=== PATIENT | male | born 1960 | race Caucasian/White ===

== ENCOUNTER → 2017-11-15 | Outpatient (CLI) | payer OTHER ==
[~2017-11-15] MED LIST: MECL25TA9 PO; MELO-207 PO; NO ROUTINE MEDS; PER PO; PROM-110 PO
--- NOTE | 2017-11-15 16:24 | RADIOLOGY IMAGING REPORT ---
FACILITY: [facility] - [place] PATIENT NAME: Po Ignacio : 1960 MR: [id number] V: [id number] EXAM DATE: ORDERING PHYSICIAN: ASMITA CARRILLO TECHNOLOGIST: Location: [facility] - [place] Patient: Po Ignacio : 1960 Visit/Account:[id number] Date of Sevice: 11/15/2017 BRAIN W/O CONTRAST Comparisons: Comparison made to report dated August 02, 2015 Additional pertinent history: Memory impairment TECHNIQUE: Multiplanar, multisequence brain MRI was performed without gadolinium contrast. FINDINGS: Sagittal midline structures and craniocervical junction: Negative. Midline shift: None. Ventricles: Negative. Brain parenchyma: Diffusion weighted imaging: Negative. Gradient sequence: Negative. T2 weighted FLAIR images: Scattered foci of abnormal increased T2 signal within the periventricular and subcortical white matter, nonspecific but likely representing small vessel ischemic change on a chronic basis. Extra-axial spaces: Mild cerebral atrophy. Dural venous sinuses and major arterial flow voids: Negative. Mastoid air cells and paranasal sinuses: Moderate lobular mucosal thickening involving the left maxil marcial sinus. Otherwise negative Surrounding soft tissues and orbits: Negative. Impression: 1. Age related changes as described above. 2. Underlying paranasal sinus disease. 3. No evidence of acute intracranial pathology. Report Dictated By: Edgar Ybarra MD at 11/15/2017 4:17 PM Report E-Signed By: Edgar Ybarra MD at 11/15/2017 4:21 PM WSN:[id number]
== END ==
LOC: MRI 11:05
PROVIDERS: ATTEND Psychiatry & Neurology Neurology
DX: R41.3 Other amnesia (principal); R41.840 Attention and concentration deficit
CPT/HCPCS: 70551

== ENCOUNTER → 2017-12-24 | Outpatient (CLI) | payer OTHER ==
[2017-12-24 16:38] LABS: INR 0.99
== END ==
LOC: LAB 08:59
PROVIDERS: ATTEND Psychiatry & Neurology Neurology
DX: R41.3 Other amnesia (principal); F03.90 Unspecified dementia, unspecified severity, without behavioral disturbance, psychotic disturbance, mood disturbance, and anxiety
CPT/HCPCS: 36415; 85610; 85730

== ENCOUNTER 2018-03-19 21:49 | Emergency (ER) | payer OTHER ==
[2018-03-19 22:01] VITALS: BP 105/74
[2018-03-19] MEDS ORDERED: LIDOCAINE 1% MDV 200 MG/20 ML INJ ONE (22:15)
[2018-03-19] MEDS ORDERED: cefTRIAXone 1 GM VIAL IM ONE (22:15)
[2018-03-19] MEDS ORDERED: ACET/HYDROC 5/325MG TH ER ONLY 2 TAB/BOTTLE PO ONE (22:15)
[2018-03-19] MEDS ORDERED: AMOX/CLAV 875 MG TAB PO ONE (22:15)
[2018-03-19] MEDS ORDERED: LOR5/325 PO (22:17)
[2018-03-19] MEDS ORDERED: AMOX-559 PO (22:17)
--- NOTE | 2018-03-19 22:18 | ER Report ---
History and Physical Time Seen By MD: 22:02 Hx. of Stated Complaint: PT FELL ONTO THE CORNER OF A TOOL BOX A WEEK AGO. PT STATES HE HIT TAILBONE AND HAS A BRUISE. AFTER TRIAGE, PT HAS A DEEP WOUND. NO BRUISING. HPI/ROS CHIEF COMPLAINT: tailbone pain HISTORY OF PRESENT ILLNESS: This is a 57 year old male. He has had tailbone pain for a week now. He fell and hit the corner of a toolbox directly over his tailbone. He had swelling and pain in the skin over the area. The last few days has had some draining as well. Pain has been worsening. Pain with pressure or sitting or movement. Allergies: Coded Allergies: No Known Drug Allergies (Verified , 08/02/15) Home Meds Active Scripts Hydrocodone Bit/Acetaminophen (HYDROCODON-ACETAMINOPHEN 5-325) 1 Each Tablet, 1 EACH PO Q4H PRN for PAIN, #12 TAB 0 Refills Prov:GARY CINTRON MD 03/19/18 Amoxicillin/Pot Clav 875-125 Mg Tab (AUGMENTIN 875-125 TABLET) 1 Each Tablet, 1 TAB PO Q12H, #20 TAB 0 Refills Prov:GARY CINTRON MD 03/19/18 Reported Medications Meloxicam (MELOXICAM) 15 Mg Tablet, 15 MG PO QDAY 03/18/17 Reviewed Nurses Notes: Yes Hx Smoking: No Smoking Status: Never Smoker Exposure to Second Hand Smoke?: No Hx Substance Use Disorder: No Hx Alcohol Use: Yes (social) Constitutional Vital Sign - Last 24 Hours 03/19/18 03/19/18 22:01 23:15 Temp 98.3 Pulse 78 84 Resp 20 18 B/P (MAP) 105/74 Pulse Ox 95 97 O2 Delivery Room Air Physical Exam General: Alert, mild distress due to pain. Skin: He has an abscess at the gluteal fold over the coccyx area that has opened and is draining. Hot and indurated. Purulent drainage. Musculoskeletal: Cannot determine if there is underlying bony pain because of diffuse pain in the area. Cardiovascular: Normal skin perfusion surrounding the area. Medical Decision Making EKG/Imaging Imaging INDICATION: coccyx injury, abscess EXAM DATE: 03/19/2018 10:12 PM COMPARISON: None. FINDINGS: 3 views of the sacrum and coccyx. Mineralization is normal. No acute alignment abnormality or fracture. No erosive/destructive lesions. Soft tissues are unremarkable. IMPRESSION: No acute abnormality of the sacrum and coccyx. Report Dictated By: Clovis Pfeiffer MD at 03/19/2018 10:52 PM ED Course/Re-evaluation ED Course Augmentin 875/125 twice a day, first dose in the ER. Rocephin 1g IM given in the ER as well. Procedure: Abscess drainage. The patient's abscess was located on the superior gluteal fold. I obtained verbal consent from the patient to drain the abscess who was informed about the possibility of bleeding and pain. Local anesthesia 1% lidocaine with epinephrine with 0.5% bupivacaine with epinephrine. The abscess was already draining. This was probed and washed out with a small amount of necrotic tissue excised with sharp scissors. I irrigated the wound again and placed some packing. The patient tolerated the procedure well. The procedure was performed by myself. Decision to Disposition Date: Mar 19, 2018 Decision to Disposition Time: 22:15 Depart Departure Latest Vital Signs Vital Signs Date Time Temp Pulse Resp B/P (MAP) Pulse Ox O2 Delivery O2 Flow Rate FiO2 03/19/18 23:15 84 18 97 03/19/18 22:01 98.3 105/74 Room Air Impression: Primary Impression: Abscess Condition: Improved Disposition: HOME OR SELF-CARE New Scripts Hydrocodone Bit/Acetaminophen (HYDROCODON-ACETAMINOPHEN 5-325) 1 Each Tablet 1 EACH PO Q4H PRN for PAIN, #12 TAB 0 Refills Prov: GARY CINTRON MD 03/19/18 Amoxicillin/Pot Clav 875-125 Mg Tab (AUGMENTIN 875-125 TABLET) 1 Each Tablet 1 TAB PO Q12H, #20 TAB 0 Refills Prov: GARY CINTRON MD 03/19/18 Patient Instructions: Abscess (ED), Abscess Incision and Drainage (DC) Additional Instructions: Take the antibiotic Augmentin 875/125 twice a day for 10 days. Take Ibuprofen 200mg over the counter tablets, take 3 tablets every 6 hours for pain and inflammation. Take Lortab 5/325, one every 4 hours as needed for severe pain. Keep the packing in place until seen tomorrow night. Sit with a heating pad against the area for about 15-30 minutes every hour while awake. GARY CINTRON MD Mar 19, 2018 22:18
--- NOTE | 2018-03-19 22:58 | RADIOLOGY IMAGING REPORT ---
FACILITY: [facility] - [place] PATIENT NAME: Po Ignacio : 1960 MR: [id number] V: [id number] EXAM DATE: ORDERING PHYSICIAN: GARY CINTRON TECHNOLOGIST: Location: [facility] - [place] Patient: Po Ignacio : 1960 Visit/Account:[id number] Date of Sevice: 03/19/2018 INDICATION: coccyx injury, abscess EXAM DATE: 03/19/2018 10:12 PM COMPARISON: None. FINDINGS: 3 views of the sacrum and coccyx. Mineralization is normal. No acute alignment abnormality or fractur e. No erosive/destructive lesions. Soft tissues are unremarkable. IMPRESSION: No acute abnormality of the sacrum and coccyx. Report Dictated By: Clovis Pfeiffer MD at 03/19/2018 10:52 PM Report E-Signed By: Clovis Pfeiffer MD at 03/19/2018 10:53 PM WSN:[id number]
== END 2018-03-19 23:30 | disposition home or self-care (01) ==
LOC: ER 21:56
DX: L02.31 Cutaneous abscess of buttock (principal)
CPT/HCPCS: 10060; 72220; 87070; 87073; 96372; 99283; J0696; J2001; 87077

== ENCOUNTER 2018-03-20 18:17 | Emergency (ER) | payer OTHER ==
[~2018-03-20 18:17] MED LIST changes: +AMOX-559 PO; +LOR5/325 PO
[2018-03-20 18:23] VITALS: BP 128/83
--- NOTE | 2018-03-20 18:25 | ER Report ---
History and Physical Time Seen By MD: 18:24 HPI/ROS CHIEF COMPLAINT: Follow-up for packing HISTORY OF PRESENT ILLNESS: This is a 57 year old male. He has less pain. Still with drainage. Has an appointment at Dr. Pop's office tomorrow morning. No fevers or chills. Allergies: Coded Allergies: No Known Drug Allergies (Verified , 03/20/18) Home Meds Active Scripts Hydrocodone Bit/Acetaminophen (HYDROCODON-ACETAMINOPHEN 5-325) 1 Each Tablet, 1 EACH PO Q4H PRN for PAIN, #12 TAB 0 Refills Prov:GARY CINTRON MD 03/19/18 Amoxicillin/Pot Clav 875-125 Mg Tab (AUGMENTIN 875-125 TABLET) 1 Each Tablet, 1 TAB PO Q12H, #20 TAB 0 Refills Prov:GARY CINTRON MD 03/19/18 Reported Medications Meloxicam (MELOXICAM) 15 Mg Tablet, 15 MG PO QDAY 03/18/17 Reviewed Nurses Notes: Yes Hx Smoking: No Smoking Status: Never Smoker Exposure to Second Hand Smoke?: No Hx Substance Use Disorder: No Hx Alcohol Use: Yes (social) Constitutional Vital Sign - Last 24 Hours 03/20/18 18:23 Temp 98.0 Pulse 86 Resp 18 B/P (MAP) 128/83 Pulse Ox 92 O2 Delivery Room Air Physical Exam General: Alert, no distress. Skin: The skin is less inflamed. Still with purulent drainage. Packing removed and re-applied after washing and flushing with saline. Medical Decision Making ED Course/Re-evaluation ED Course No changes to course at this point. Continuing Augmentin. Decision to Disposition Date: Mar 20, 2018 Decision to Disposition Time: 18:39 Depart Departure Latest Vital Signs Vital Signs Date Time Temp Pulse Resp B/P (MAP) Pulse Ox O2 Delivery O2 Flow Rate FiO2 03/20/18 18:23 98.0 86 18 128/83 92 Room Air Impression: Primary Impression: Abscess Condition: Improved Disposition: HOME OR SELF-CARE Additional Instructions: Follow-up with Dr. Pop tomorrow as planned. Keep taking the Augmentin as prescribed yesterday. You can take a shower tomorrow morning just prior to going into Dr. Pop's office. GARY CINTRON MD Mar 20, 2018 18:25
[2018-03-20] MEDS ORDERED: LIDOCAINE 1% MDV 200 MG/20 ML INJ ONE (18:40)
[2018-03-20] MEDS ORDERED: cefTRIAXone 1 GM VIAL IM ONE (18:40)
== END 2018-03-20 19:00 | disposition home or self-care (01) ==
LOC: ER 18:37
DX: L02.31 Cutaneous abscess of buttock (principal)
CPT/HCPCS: 96372; 99283; J0696